=== PATIENT | female | born 1935 | race Caucasian/White ===

== ENCOUNTER 2017-05-31 11:41 | Inpatient (IN) | payer MEDICARE, MEDICAID ==
[~2017-05-31] VITALS: Ht 154.9 cm; Wt 63.9 kg
[~2017-05-31 11:41] MED LIST: ACET-2119 PO; ATOR20TA66 PO; CALC-1092 PO; CHLO-188 PO; CHOL2000 PO; CLOP75TA35 PO; DONE10TA6 PO; FENT-90 TP; GLIM4TAB79 PO; LINA5TAB4 PO; PANT-47 PO
[2017-05-31 12:28] LABS: BASOPHILS % (AUTO) 0.2 % (0-1); EOSINOPHILS # (AUTO) 0.2 X10'3 (0-0.9); EOSINOPHILS % (AUTO) 1.8 % (0-6); HEMATOCRIT 42.5 % (35.0-45.0); HEMOGLOBIN 14.4 g/dl (12.0-16.0); LYMPHOCYTES # (AUTO) 4.5 X10'3 (1.1-4.8); LYMPHOCYTES % (AUTO) 37.5 % (21-51); MEAN CORPUSCULAR HEMOGLOBIN 29.6 PG (27.0-31.0); MEAN CORPUSCULAR HGB CONC 33.8 % (33.0-36.5); MEAN CORPUSCULAR VOLUME 87.5 FL (78-98); MEAN PLATELET VOLUME 10.4 FL (7.4-10.4); MONOCYTES # (AUTO) 0.7 X10'3 (0-0.9); NEUTROPHILS # (AUTO) 6.6 X10'3 (1.8-7.7); NEUTROPHILS % (AUTO) 54.5 % (42-75); PLATELET COUNT 176 X10'3 (140-440); RED BLOOD COUNT 4.86 X10'6 (4.20-5.60); WHITE BLOOD COUNT 12.1 X10'3 (4.5-11.0)
[2017-05-31 12:38] LABS: INR 1.1 INR; PARTIAL THROMBOPLASTIN TIME 27 SECONDS (22-32); PROTHROMBIN TIME 10.9 SECONDS (9.0-12.0)
[2017-05-31 12:42] LABS: ALANINE AMINOTRANSFERASE 12 U/L (12-78); ALBUMIN 3.9 G/DL (3.4-5.0); ALBUMIN/GLOBULIN RATIO 1.4 (1.1-1.5); ALKALINE PHOSPHATASE 76 IU/L (46-116); ANION GAP 8 (8-16); ASPARTATE AMINO TRANSFERASE 10 U/L (10-37); BILIRUBIN,TOTAL 0.3 MG/DL (0.1-1.0); BLOOD UREA NITROGEN 16 MG/DL (7-18); CALCIUM 9.5 MG/DL (8.5-10.1); CHLORIDE 108 MMOL/L (99-107); GLUCOSE 114 MG/DL (70-104); POTASSIUM 4.1 MMOL/L (3.5-5.1); SODIUM 143 MMOL/L (135-145); TOTAL CARBON DIOXIDE 26.8 MMOL/L (24-32); TOTAL PROTEIN 6.7 G/DL (6.4-8.2); eGFR 53 ML/MIN
[2017-05-31] MEDS ORDERED: nitroGLYCERIN 1gm ointment UD TP ONE (12:50)
[2017-05-31] MEDS ORDERED: enoxaparin 100mg/ml syringe SUBCUT ONE (13:05)
[2017-05-31] MEDS ORDERED: CYCL5TAB PO (13:42)
[2017-05-31] MEDS ORDERED: OMEP20TA23 PO (13:44)
[2017-05-31] MEDS ORDERED: ASPI-1053 PO (13:44)
[2017-05-31] MEDS ORDERED: ISOS30TA6 PO (13:45)
[2017-05-31] MEDS: K and/or MAG REPLACEMENT MC SCH (14:15)
[2017-05-31] MEDS ORDERED: mag hydrox/Alum hydrox/simeth 30ml oral suspension PO PRN (14:15)
[2017-05-31] MEDS ORDERED: magnesium 2GM in 50ml NS 50 ML IV PRN (14:15)
[2017-05-31] MEDS ORDERED: magnesium hydroxide 30ml (MOM) UD suspension PO PRN (14:15)
[2017-05-31] MEDS ORDERED: nitroGLYCERIN 0.4mg SUBLingual tab SL PRN (14:15)
[2017-05-31] MEDS ORDERED: morphine 2 MG/ML inj. syringe IV PRN (14:15)
[2017-05-31] MEDS ORDERED: magnesium 4gm in 100ml NS 100 ML IV PRN (14:15)
[2017-05-31] MEDS ORDERED: magnesium Cl slow-release 64mg tablet PO PRN (14:15)
[2017-05-31] MEDS ORDERED: potassium Cl 40MEQ/NS 500ml 500 ML IV PRN ×2 (14:15)
[2017-05-31] MEDS ORDERED: potassium Cl 20 mEq SR tablet PO PRN ×2 (14:15)
[2017-05-31] MEDS ORDERED: acetaminophen 325mg tablet PO PRN ×3 (14:15→17:50)
[2017-05-31 15:54] LABS: HEMOGLOBIN A1C 6.8 % (4.5-6.2)
[2017-05-31] MEDS: normal saline 1000ml 1,000 ML IV SCH (16:25)
[2017-05-31 18:00] VITALS: BP 124/63
[2017-05-31 19:42] LABS: CHOLESTEROL 292 MG/DL (0-200); HDL CHOLESTEROL 49 MG/DL (35-60); LDL CHOLESTEROL 212 MG/DL (50-100); TRIGLYCERIDES 162 MG/DL (20-135)
[2017-05-31] MEDS: metoprolol tartrate 12.5mg (1/2 tablet) PO SCH (20:06)
[2017-05-31] MEDS: morphine 2 MG/ML inj. syringe IV PRN (20:07)
[2017-05-31] MEDS ORDERED: temazepam 15mg capsule PO PRN (21:00)
[2017-05-31 22:00] VITALS: BP 127/56
[2017-06-01] VITALS (18 sets, daily range): BP systolic 98–182; BP diastolic 49–86
[2017-06-01] MEDS: normal saline 1000ml 1,000 ML IV SCH ×4 (02:24→20:13)
[2017-06-01] MEDS: ondansetron/PF 4mg/2ml inj IV PRN ×3 (03:58→16:36)
[2017-06-01 06:29] LABS: HEMATOCRIT 39.8 % (35.0-45.0); HEMOGLOBIN 13.3 g/dl (12.0-16.0); MEAN CORPUSCULAR HEMOGLOBIN 29.2 PG (27.0-31.0); MEAN CORPUSCULAR HGB CONC 33.4 % (33.0-36.5); MEAN CORPUSCULAR VOLUME 87.4 FL (78-98); MEAN PLATELET VOLUME 11.2 FL (7.4-10.4); PLATELET COUNT 140 X10'3 (140-440); RED BLOOD COUNT 4.55 X10'6 (4.20-5.60); RED CELL DISTRIBUTION WIDTH 14.9 % (11.5-14.5); WHITE BLOOD COUNT 10.8 X10'3 (4.5-11.0)
[2017-06-01 06:55] LABS: ALBUMIN 3.3 G/DL (3.4-5.0); ANION GAP 10 (8-16); BLOOD UREA NITROGEN 17 MG/DL (7-18); BUN/CREATININE RATIO 21.3 (6.6-38.0); CALCIUM 8.7 MG/DL (8.5-10.1); CHLORIDE 111 MMOL/L (99-107); GLUCOSE 151 MG/DL (70-104); MAGNESIUM 1.7 MG/DL (1.5-2.4); POTASSIUM 3.9 MMOL/L (3.5-5.1); SODIUM 145 MMOL/L (135-145); TOTAL CARBON DIOXIDE 24.5 MMOL/L (24-32); eGFR 69 ML/MIN
[2017-06-01] MEDS: morphine 2 MG/ML inj. syringe IV PRN ×2 (07:56→16:37)
[2017-06-01] MEDS: pantoprazole 40mg Tablet.DR PO SCH (07:58)
[2017-06-01] MEDS: metoprolol tartrate 12.5mg (1/2 tablet) PO SCH ×2 (07:59→19:36)
[2017-06-01] MEDS: donepezil 5mg tablet PO SCH ×2 (07:59→17:30)
[2017-06-01] MEDS: isosorbide mononitrate 30mg tab.SR.24H PO SCH (08:00)
[2017-06-01] MEDS: K and/or MAG REPLACEMENT MC SCH (08:00)
[2017-06-01] MEDS ORDERED: aspirin 81mg tab.chew PO SCH (08:30)
[2017-06-01] MEDS: proCHLORperazine 10 MG/2 ml inj IV PRN (14:26)
[2017-06-01] MEDS ORDERED: iohexol 350 MG/ML 50ML vial IV ONE (14:34)
[2017-06-01] MEDS ORDERED: LIDOcaine 1% 30ml vial 30 ML ONE (14:34)
[2017-06-01] MEDS ORDERED: iohexol 350MG/ML 100ml bottle IV ONE (14:34)
[2017-06-01] MEDS ORDERED: heparin 1,000unit/ml 10ml vial 10 ML ONE (14:34)
[2017-06-01] MEDS ORDERED: nitroGLYCERIN-Tridil 50MG/D5W 250 ML IV ONE ×2 (14:34→15:36)
[2017-06-01] MEDS ORDERED: cyclobenzaprine 10mg tablet PO PRN (18:05)
[2017-06-01] MEDS ORDERED: OXAZEpam 15mg capsule PO PRN (18:05)
[2017-06-01] MEDS ORDERED: acetaminophen 325mg tablet PO PRN (18:30)
[2017-06-01] MEDS ORDERED: magnesium hydroxide 30ml (MOM) UD suspension PO PRN (18:30)
[2017-06-01] MEDS ORDERED: aspirin 325mg tablet PO ONE (18:30)
[2017-06-01] MEDS ORDERED: proCHLORperazine 10 MG/2 ml inj IV PRN (18:30)
[2017-06-01] MEDS: nitroGLYCERIN-Tridil 50MG/D5W 250 ML IV SCH (18:30)
[2017-06-01] MEDS ORDERED: glucagon, human recombinant 1mg kit SUBCUT PRN (18:35)
[2017-06-01] MEDS ORDERED: dextrose ORAL solution 15 GM/59 ML bottle PO PRN ×2 (18:35)
[2017-06-01] MEDS ORDERED: dextrose 50%-water 50ml dispensing syringe IV PRN ×2 (18:35)
[2017-06-01] MEDS: docusate sod 100mg capsule PO SCH (19:36)
[2017-06-01] MEDS: insulin glargine (Lantus) pen - multi-dose SQ SCH (20:44)
[2017-06-01] MEDS: hydrALAZINE 20mg/ml inj. IV PRN (23:53)
[2017-06-02] VITALS (27 sets, daily range): BP systolic 118–176; BP diastolic 49–84
[2017-06-02] MEDS: proCHLORperazine 10 MG/2 ml inj IV PRN (00:16)
[2017-06-02 03:30] LABS: BASOPHILS % (AUTO) 0.2 % (0-1); EOSINOPHILS # (AUTO) 0.2 X10'3 (0-0.9); EOSINOPHILS % (AUTO) 0.9 % (0-6); HEMATOCRIT 39.8 % (35.0-45.0); HEMOGLOBIN 13.6 g/dl (12.0-16.0); LYMPHOCYTES # (AUTO) 5.4 X10'3 (1.1-4.8); LYMPHOCYTES % (AUTO) 26.9 % (21-51); MEAN CORPUSCULAR HEMOGLOBIN 29.8 PG (27.0-31.0); MEAN CORPUSCULAR HGB CONC 34.2 % (33.0-36.5); MEAN CORPUSCULAR VOLUME 87.1 FL (78-98); MEAN PLATELET VOLUME 11.3 FL (7.4-10.4); MONOCYTES # (AUTO) 0.8 X10'3 (0-0.9); MONOCYTES % (AUTO) 3.9 % (2-12); NEUTROPHILS # (AUTO) 13.7 X10'3 (1.8-7.7); NEUTROPHILS % (AUTO) 68.1 % (42-75); PLATELET COUNT 180 X10'3 (140-440); RED BLOOD COUNT 4.57 X10'6 (4.20-5.60); RED CELL DISTRIBUTION WIDTH 14.8 % (11.5-14.5); WHITE BLOOD COUNT 20.1 X10'3 (4.5-11.0)
[2017-06-02 03:45] LABS: PLATELET ESTIMATE NORMAL
[2017-06-02 03:46] LABS: LARGE PLATELETS FEW
[2017-06-02 03:58] LABS: ALBUMIN 3.6 G/DL (3.4-5.0); ANION GAP 14 (8-16); BLOOD UREA NITROGEN 13 MG/DL (7-18); BUN/CREATININE RATIO 16.3 (6.6-38.0); CHLORIDE 107 MMOL/L (99-107); GLUCOSE 231 MG/DL (70-104); MAGNESIUM 1.7 MG/DL (1.5-2.4); POTASSIUM 3.5 MMOL/L (3.5-5.1); SODIUM 143 MMOL/L (135-145); TOTAL CARBON DIOXIDE 21.7 MMOL/L (24-32); eGFR 69 ML/MIN
[2017-06-02] MEDS: normal saline 1000ml 1,000 ML IV SCH ×3 (04:35→16:40)
[2017-06-02] MEDS: hydrALAZINE 20mg/ml inj. IV PRN (07:57)
[2017-06-02] MEDS: docusate sod 100mg capsule PO SCH ×2 (07:58→19:06)
[2017-06-02] MEDS: pantoprazole 40mg Tablet.DR PO SCH (07:58)
[2017-06-02] MEDS: metoprolol tartrate 12.5mg (1/2 tablet) PO SCH (07:59)
[2017-06-02] MEDS: aspirin 325mg tablet PO SCH (07:59)
[2017-06-02] MEDS ORDERED: heparin 1,000unit/ml 10ml vial 10 ML ONE (07:59)
[2017-06-02] MEDS: isosorbide mononitrate 30mg tab.SR.24H PO SCH (07:59)
[2017-06-02] MEDS ORDERED: nitroGLYCERIN-Tridil 50MG/D5W 250 ML IV ONE (07:59)
[2017-06-02] MEDS: donepezil 5mg tablet PO SCH ×2 (07:59→17:50)
[2017-06-02] MEDS ORDERED: nitroGLYCERIN 0.4mg/hour patch TD SCH (08:00)
[2017-06-02] MEDS: K and/or MAG REPLACEMENT MC SCH (08:00)
[2017-06-02] MEDS ORDERED: LIDOcaine 1% 30ml vial 30 ML ONE (08:00)
[2017-06-02] MEDS ORDERED: iohexol 350 MG/1 ML 200ml bottle ONE (08:00)
[2017-06-02] MEDS ORDERED: proCHLORperazine 10 MG/2 ml inj ONE (08:18)
[2017-06-02] MEDS ORDERED: verapamil 2.5 mg/ml inj IV ONE (08:46)
[2017-06-02] MEDS ORDERED: magnesium 1 GM/2 ML inj ONE (09:12)
[2017-06-02] MEDS ORDERED: potassium Cl 20mEq/100mL bag 100 ML IV ONE (09:12)
[2017-06-02] MEDS ORDERED: clopidogrel 300mg tablet ONE (09:54)
[2017-06-02 10:16] LABS: ISTAT HGB ART 13.3 g/dl (12.0-16.0); ISTAT Hct ART 39 %PCV (35-48); ISTAT Hct MIX 37 %PCV (35-48); ISTAT O2 SATURATION ARTERIAL 98 % (95-98); ISTAT O2 SATURATION MIX VENOUS 66 % (60-80); ISTAT SOURCE ART; ISTAT SOURCE MIX
[2017-06-02] MEDS: ondansetron/PF 4mg/2ml inj IV PRN ×2 (11:35→19:07)
[2017-06-02] MEDS: insulin Lispro (HumaLOG) vial - multi-dose SQ SCH ×2 (13:13→19:06)
[2017-06-02] MEDS ORDERED: sotalol 80mg tablet PO ONE (13:55)
[2017-06-02] MEDS ORDERED: morphine 2 MG/ML inj. syringe IV ONE (16:35)
[2017-06-02] MEDS: nitroGLYCERIN-Tridil 50MG/D5W 250 ML IV SCH (18:30)
[2017-06-02] MEDS: sotalol 80mg tablet PO SCH (20:22)
[2017-06-02] MEDS: insulin glargine (Lantus) pen - multi-dose SQ SCH (21:00)
[2017-06-02] MEDS ORDERED: atorvastatin 10mg tablet PO SCH (21:00)
[2017-06-03] VITALS (15 sets, daily range): BP systolic 104–154; BP diastolic 46–96
[2017-06-03] MEDS: normal saline 1000ml 1,000 ML IV SCH ×2 (02:13→12:13)
[2017-06-03 06:11] LABS: HEMATOCRIT 36.6 % (35.0-45.0); HEMOGLOBIN 12.4 g/dl (12.0-16.0); MEAN CORPUSCULAR HEMOGLOBIN 29.7 PG (27.0-31.0); MEAN CORPUSCULAR VOLUME 87.2 FL (78-98); PLATELET COUNT 160 X10'3 (140-440); RED CELL DISTRIBUTION WIDTH 15.2 % (11.5-14.5); WHITE BLOOD COUNT 16.6 X10'3 (4.5-11.0)
[2017-06-03 06:50] LABS: ANION GAP 9 (8-16); BLOOD UREA NITROGEN 16 MG/DL (7-18); CALCIUM 8.7 MG/DL (8.5-10.1); CHLORIDE 112 MMOL/L (99-107); GLUCOSE 127 MG/DL (70-104); MAGNESIUM 2.1 MG/DL (1.5-2.4); POTASSIUM 3.8 MMOL/L (3.5-5.1); SODIUM 146 MMOL/L (135-145); TOTAL CARBON DIOXIDE 24.8 MMOL/L (24-32); eGFR 69 ML/MIN
[2017-06-03] MEDS: K and/or MAG REPLACEMENT MC SCH (08:00)
[2017-06-03] MEDS ORDERED: clopidogrel 75mg tablet PO SCH (08:00)
[2017-06-03] MEDS: pantoprazole 40mg Tablet.DR PO SCH (08:25)
[2017-06-03] MEDS: isosorbide mononitrate 30mg tab.SR.24H PO SCH (08:25)
[2017-06-03] MEDS: donepezil 5mg tablet PO SCH (08:26)
[2017-06-03] MEDS: sotalol 80mg tablet PO SCH (08:26)
[2017-06-03] MEDS: docusate sod 100mg capsule PO SCH (08:27)
[2017-06-03] MEDS: insulin Lispro (HumaLOG) vial - multi-dose SQ SCH (08:52)
[2017-06-03] MEDS: aspirin 325mg tablet PO SCH (09:21)
[2017-06-03] MEDS ORDERED: NITR0.4T51 SL (11:53)
[2017-06-03] MEDS ORDERED: PANT40TA4 PO (11:53)
[2017-06-03] MEDS ORDERED: SOTA80TA69 PO (11:53)
[2017-06-03] MEDS ORDERED: ATOR10TA PO (11:53)
== END 2017-06-03 17:00 | disposition home health service (06) | DRG 246 ==
LOC: ER 11:42 → ED HOLD 14:13 → EDBEDREQ 16:09 → PCU 3S 16:46 → ICU 2S 06-01 15:55
PROVIDERS: ADMIT Family Medicine; ATTEND Family Medicine
PROC: 4A023N8 Measurement of Cardiac Sampling and Pressure, Bilateral, Percutaneous Approach (ICD-10-PCS; principal; 2017-06-01)
PROC: B2111ZZ Fluoroscopy of Multiple Coronary Arteries using Low Osmolar Contrast (ICD-10-PCS; 2017-06-01)
PROC: B2151ZZ Fluoroscopy of Left Heart using Low Osmolar Contrast (ICD-10-PCS; 2017-06-01)
PROC: 027135Z Dilation of Coronary Artery, Two Arteries with Two Drug-eluting Intraluminal Devices, Percutaneous Approach (ICD-10-PCS; 2017-06-02)
DX: T82.855A Stenosis of coronary artery stent, initial encounter (principal); N17.0 Acute kidney failure with tubular necrosis; I11.0 Hypertensive heart disease with heart failure; E87.1 Hypo-osmolality and hyponatremia; I50.9 Heart failure, unspecified; E11.9 Type 2 diabetes mellitus without complications; D72.829 Elevated white blood cell count, unspecified; I25.110 Atherosclerotic heart disease of native coronary artery with unstable angina pectoris; E78.5 Hyperlipidemia, unspecified; K21.9 Gastro-esophageal reflux disease without esophagitis; G31.84 Mild cognitive impairment of uncertain or unknown etiology; Y82.8 Other medical devices associated with adverse incidents; I25.2 Old myocardial infarction; Z78.0 Asymptomatic menopausal state; Z90.710 Acquired absence of both cervix and uterus; Z88.0 Allergy status to penicillin; Z88.2 Allergy status to sulfonamides; Z88.5 Allergy status to narcotic agent; Z91.013 Allergy to seafood; Z88.8 Allergy status to other drugs, medicaments and biological substances; Z91.018 Allergy to other foods; Z91.048 Other nonmedicinal substance allergy status; Z79.02 Long term (current) use of antithrombotics/antiplatelets; Z79.899 Other long term (current) drug therapy; Z79.84 Long term (current) use of oral hypoglycemic drugs; Z85.3 Personal history of malignant neoplasm of breast; Y92.89 Other specified places as the place of occurrence of the external cause
CPT/HCPCS: 93460; 96372; 99285; C9600; 36415; 71045; 80048; 80053; 80061; 82803; 82948; 83036; 83735; 84484; 85014; 85025; 85027; 85347; 85610; 85730; 87070; 93005; A4620; A6213; A6257; A6258; A6402; A6449; C1725; C1769; C1874; J0360; J0780; J1644; J1650; J1815; J2270; J2405; J3475; J3480; J3490; J7030; Q9967

== ENCOUNTER 2017-08-30 10:12 | Emergency (ER) | payer MEDICARE, MEDICAID ==
[~2017-08-30] VITALS: Ht 154.9 cm; Wt 58.0 kg
[~2017-08-30 10:12] MED LIST changes: +ASPI-1053 PO; +ATOR10TA PO; -ATOR20TA66 PO; -CHLO-188 PO; +CYCL5TAB PO; -FENT-90 TP; +ISOS30TA6 PO; +NITR0.4T51 SL; -PANT-47 PO; +PANT40TA4 PO; +SOTA80TA69 PO
[2017-08-30 10:14] VITALS: BP 143/81
== END 2017-08-30 11:19 | disposition home or self-care (01) ==
LOC: ER 10:13
DX: H61.23 Impacted cerumen, bilateral (principal); I25.10 Atherosclerotic heart disease of native coronary artery without angina pectoris; I11.0 Hypertensive heart disease with heart failure; I50.9 Heart failure, unspecified; E11.9 Type 2 diabetes mellitus without complications; Z90.710 Acquired absence of both cervix and uterus; Z88.5 Allergy status to narcotic agent; Z88.2 Allergy status to sulfonamides; Z88.0 Allergy status to penicillin; Z79.899 Other long term (current) drug therapy
CPT/HCPCS: 69210; 93005; 99284

== ENCOUNTER 2018-03-12 10:03 | Outpatient (CLI) | payer MEDICARE, MEDICAID ==
[~2018-03-12 10:03] MED LIST changes: +CYCL-1 PO; +DOCU-28 PO; -DONE10TA6 PO; +DONE10TA7 PO; +EZET10TA14 PO; +HYDR-4383 PO; -SOTA80TA69 PO; +SOTA80TA73 PO
== END 2018-03-12 23:59 | disposition home or self-care (01) ==
LOC: RAD 10:03
PROVIDERS: ATTEND Internal Medicine Cardiovascular Disease
DX: I25.10 Atherosclerotic heart disease of native coronary artery without angina pectoris (principal); Z95.5 Presence of coronary angioplasty implant and graft

== ENCOUNTER 2018-04-21 08:20 | Inpatient (IN) | payer MEDICARE, MEDICAID ==
[~2018-04-21] VITALS: Ht 157.5 cm; Wt 59.0 kg
[2018-04-21] MEDS ORDERED: aspirin 81mg tab.chew PO ONE (08:50)
[2018-04-21 09:19] LABS: BASOPHILS % (AUTO) 0.3 % (0-1); EOSINOPHILS # (AUTO) 0.2 X10'3 (0-0.9); EOSINOPHILS % (AUTO) 1.4 % (0-6); HEMATOCRIT 46.1 % (35.0-45.0); HEMOGLOBIN 15.1 g/dl (12.0-16.0); LYMPHOCYTES # (AUTO) 6.6 X10'3 (1.1-4.8); MEAN CORPUSCULAR HEMOGLOBIN 29.2 PG (27.0-31.0); MEAN CORPUSCULAR HGB CONC 32.8 % (33.0-36.5); MEAN PLATELET VOLUME 10.5 FL (7.4-10.4); MONOCYTES # (AUTO) 0.7 X10'3 (0-0.9); MONOCYTES % (AUTO) 5.1 % (2-12); NEUTROPHILS # (AUTO) 6.8 X10'3 (1.8-7.7); NEUTROPHILS % (AUTO) 47.2 % (42-75); PLATELET COUNT 157 X10'3 (140-440); RED BLOOD COUNT 5.18 X10'6 (4.20-5.60); RED CELL DISTRIBUTION WIDTH 13.7 % (11.5-14.5); WHITE BLOOD COUNT 14.4 X10'3 (4.5-11.0)
[2018-04-21 09:24] LABS: PROTHROMBIN TIME 10.8 SECONDS (9.0-12.0)
[2018-04-21 09:25] LABS: INR 1.1 INR; PARTIAL THROMBOPLASTIN TIME 28 SECONDS (22-32)
[2018-04-21 09:31] LABS: ALANINE AMINOTRANSFERASE 24 U/L (12-78); ALBUMIN 3.7 G/DL (3.4-5.0); ALBUMIN/GLOBULIN RATIO 1.3 (1.1-1.5); ALKALINE PHOSPHATASE 100 IU/L (46-116); ANION GAP 12 (8-16); ASPARTATE AMINO TRANSFERASE 18 U/L (10-37); BILIRUBIN,TOTAL 0.4 MG/DL (0.1-1.0); BLOOD UREA NITROGEN 16 MG/DL (7-18); BUN/CREATININE RATIO 19.5 (6.6-38.0); CALCIUM 9.7 MG/DL (8.5-10.1); CHLORIDE 104 MMOL/L (99-107); CREATININE 0.82 MG/DL (0.40-0.90); GLUCOSE 234 MG/DL (70-104); POTASSIUM 4.1 MMOL/L (3.5-5.1); SODIUM 140 MMOL/L (135-145); TOTAL CARBON DIOXIDE 24.5 MMOL/L (24-32); TOTAL PROTEIN 6.6 G/DL (6.4-8.2); eGFR 66 ML/MIN
[2018-04-21] MEDS ORDERED: ondansetron/PF 4mg/2ml inj IV PRN (09:55)
[2018-04-21] MEDS ORDERED: dextrose ORAL solution 15 GM/59 ML bottle PO PRN ×2 (09:55)
[2018-04-21] MEDS ORDERED: acetaminophen 325mg tablet PO PRN (09:55)
[2018-04-21] MEDS ORDERED: dextrose 50%-water 50ml dispensing syringe IV PRN ×2 (09:55)
[2018-04-21] MEDS: K and/or MAG REPLACEMENT MC SCH (09:55)
[2018-04-21] MEDS ORDERED: glucagon, human recombinant 1mg kit SUBCUT PRN (09:55)
[2018-04-21] MEDS ORDERED: magnesium 4gm in 100ml NS 100 ML IV PRN (09:55)
[2018-04-21] MEDS ORDERED: docusate sod 100mg capsule PO PRN ×2 (09:55→11:40)
[2018-04-21] MEDS ORDERED: potassium Cl 20 mEq SR tablet PO PRN (09:55)
[2018-04-21] MEDS ORDERED: magnesium Cl slow-release 64mg tablet PO PRN (09:55)
[2018-04-21] MEDS ORDERED: mag hydrox/Alum hydrox/simeth 30ml oral suspension PO PRN (09:55)
[2018-04-21] MEDS ORDERED: potassium Cl 40MEQ/NS 500ml 500 ML IV PRN ×2 (09:55)
[2018-04-21] MEDS ORDERED: MESSAGE TO PHARMACY PO ONE (09:55)
[2018-04-21] MEDS ORDERED: ipratropium/albuterol 3ml nebule NEB PRN (10:25)
[2018-04-21 10:26] LABS: HEMOGLOBIN A1C 7.5 % (4.5-6.2)
[2018-04-21] MEDS ORDERED: LINA5TAB4 PO (10:31)
[2018-04-21] MEDS ORDERED: CLOP75TA15 PO (10:39)
[2018-04-21] MEDS ORDERED: ATOR10TA87 PO (10:39)
[2018-04-21] MEDS ORDERED: DOCU-28 PO (10:39)
[2018-04-21] MEDS ORDERED: PANT-47 PO (10:40)
[2018-04-21] MEDS ORDERED: NITR0.4T51 SL (10:40)
[2018-04-21] MEDS ORDERED: SOTA80TA73 PO (10:40)
[2018-04-21] MEDS ORDERED: CALCIUM CARB PO PRN (11:40)
[2018-04-21] MEDS ORDERED: MAGNESIUM HYDROX PO PRN (11:40)
[2018-04-21] MEDS ORDERED: nitroGLYCERIN 0.4mg SUBLingual tab SL PRN (11:40)
[2018-04-21] MEDS: DOXYCYCLINE 100MG CAPSULE PO SCH ×2 (15:52→19:17)
[2018-04-21] MEDS: donepezil 5mg tablet PO SCH (17:41)
[2018-04-21 18:00] VITALS: BP 140/68
[2018-04-21] MEDS: sotalol 80mg tablet PO SCH (19:17)
[2018-04-21] MEDS: atorvastatin 10mg tablet PO SCH (20:37)
[2018-04-21] MEDS: insulin glargine (Lantus) pen - multi-dose SQ SCH (20:43)
[2018-04-21 22:00] VITALS: BP 137/65
[2018-04-22 02:00] VITALS: BP 154/71
[2018-04-22] MEDS ORDERED: HYDROcodone/acetaminophen 5mg/325mg tablet PO PRN (02:50)
[2018-04-22 05:37] LABS: BASOPHILS % (AUTO) 0.3 % (0-1); EOSINOPHILS # (AUTO) 0.3 X10'3 (0-0.9); EOSINOPHILS % (AUTO) 2.2 % (0-6); HEMATOCRIT 41.9 % (35.0-45.0); HEMOGLOBIN 13.8 g/dl (12.0-16.0); LYMPHOCYTES # (AUTO) 4.7 X10'3 (1.1-4.8); LYMPHOCYTES % (AUTO) 35.3 % (21-51); MEAN CORPUSCULAR HEMOGLOBIN 29.2 PG (27.0-31.0); MEAN CORPUSCULAR HGB CONC 32.9 % (33.0-36.5); MEAN CORPUSCULAR VOLUME 88.8 FL (78-98); MEAN PLATELET VOLUME 11.1 FL (7.4-10.4); MONOCYTES # (AUTO) 0.8 X10'3 (0-0.9); NEUTROPHILS # (AUTO) 7.4 X10'3 (1.8-7.7); NEUTROPHILS % (AUTO) 56.2 % (42-75); PLATELET COUNT 145 X10'3 (140-440); RED BLOOD COUNT 4.72 X10'6 (4.20-5.60); RED CELL DISTRIBUTION WIDTH 13.7 % (11.5-14.5); WHITE BLOOD COUNT 13.2 X10'3 (4.5-11.0)
[2018-04-22 05:49] LABS: ALANINE AMINOTRANSFERASE 20 U/L (12-78); ALBUMIN 3.3 G/DL (3.4-5.0); ALBUMIN/GLOBULIN RATIO 1.3 (1.1-1.5); ALKALINE PHOSPHATASE 71 IU/L (46-116); ANION GAP 8 (8-16); ASPARTATE AMINO TRANSFERASE 18 U/L (10-37); BILIRUBIN,TOTAL 0.4 MG/DL (0.1-1.0); BLOOD UREA NITROGEN 22 MG/DL (7-18); BUN/CREATININE RATIO 21.2 (6.6-38.0); CALCIUM 9.8 MG/DL (8.5-10.1); CHLORIDE 106 MMOL/L (99-107); CHOL/HDL RATIO 3.3 (0.00-4.99); CHOLESTEROL 178 MG/DL (0-200); CREATININE 1.04 MG/DL (0.40-0.90); GLUCOSE 148 MG/DL (70-104); HDL CHOLESTEROL 54 MG/DL (35-60); LDL CHOLESTEROL 97 MG/DL (50-100); MAGNESIUM 1.5 MG/DL (1.5-2.4); POTASSIUM 3.9 MMOL/L (3.5-5.1); SODIUM 141 MMOL/L (135-145); TOTAL CARBON DIOXIDE 27.4 MMOL/L (24-32); TOTAL PROTEIN 5.9 G/DL (6.4-8.2); TRIGLYCERIDES 144 MG/DL (20-135); eGFR 50 ML/MIN
[2018-04-22] MEDS ORDERED: ondansetron/PF 4mg/2ml inj IV PRN (06:15)
[2018-04-22 07:08] VITALS: BP 144/56
[2018-04-22] MEDS: donepezil 5mg tablet PO SCH ×2 (07:30→17:02)
[2018-04-22] MEDS: K and/or MAG REPLACEMENT MC SCH (07:58)
[2018-04-22] MEDS: ezetimibe 10mg tablet PO SCH (08:00)
[2018-04-22] MEDS: vitamin D (cholecalciferol) 1,000 unit tablet PO SCH (08:00)
[2018-04-22] MEDS: DOXYCYCLINE 100MG CAPSULE PO SCH (08:00)
[2018-04-22] MEDS ORDERED: enoxaparin 40mg/0.4ml syringe SQ SCH (08:00)
[2018-04-22] MEDS ORDERED: metoclopramide 5 mg/ml inj IV ONE (08:10)
[2018-04-22] MEDS: aspirin 81mg tab.chew PO SCH (08:30)
[2018-04-22] MEDS: clopidogrel 75mg tablet PO SCH (09:04)
[2018-04-22] MEDS: sotalol 80mg tablet PO SCH ×2 (09:04→20:29)
[2018-04-22] MEDS: pantoprazole 40mg Tablet.DR PO SCH (09:06)
[2018-04-22 09:28] LABS: CLARITY,URINE CLEAR (Clear); COLOR,URINE STRAW (Yellow); GLUCOSE, URINE 100 mg/dl (Neg); KETONES,URINE TRACE mg/dl (Neg); LEUKOCYTE ESTERASE ,URINE TRACE (Neg); NITRITES, URINE NEGATIVE (Neg); OCCULT BLOOD,URINE NEGATIVE (Neg); PROTEIN,URINE NEGATIVE (Neg); UROBILINOGEN,URINE 0.2 E.U/dL (0.2-1.0)
[2018-04-22 09:36] LABS: UA COLLECTION TYPE NON-SPECIFIED
[2018-04-22 09:38] LABS: RBC,URINE NONE SEEN /HPF (0-2)
[2018-04-22 09:39] LABS: BACTERIA,URINE FEW /HPF (Neg); SQUAMOUS EPITHELIAL CELL,UR FEW /LPF (FEW)
[2018-04-22] MEDS: insulin Lispro (HumaLOG) vial - multi-dose SQ SCH ×3 (09:57→19:09)
[2018-04-22 11:41] VITALS: BP 160/70
[2018-04-22] MEDS ORDERED: proCHLORperazine 10 MG/2 ml inj IV ONE (12:00)
[2018-04-22] MEDS: levoFLOXACIN-Levaquin 500mg/D5 100 ML IV SCH (12:11)
[2018-04-22] MEDS ORDERED: proCHLORperazine 10 MG/2 ml inj IV PRN (14:15)
[2018-04-22 16:03] VITALS: BP 131/53
[2018-04-22 18:00] VITALS: BP 146/72
[2018-04-22] MEDS: atorvastatin 10mg tablet PO SCH (20:29)
[2018-04-22] MEDS: insulin glargine (Lantus) pen - multi-dose SQ SCH (20:37)
[2018-04-22 22:00] VITALS: BP 135/54
[2018-04-23 02:00] VITALS: BP 140/59
[2018-04-23 06:14] LABS: BASOPHILS % (AUTO) 0.2 % (0-1); EOSINOPHILS # (AUTO) 0.2 X10'3 (0-0.9); EOSINOPHILS % (AUTO) 0.9 % (0-6); HEMATOCRIT 43.9 % (35.0-45.0); HEMOGLOBIN 14.6 g/dl (12.0-16.0); LYMPHOCYTES # (AUTO) 7.8 X10'3 (1.1-4.8); LYMPHOCYTES % (AUTO) 38.5 % (21-51); MEAN CORPUSCULAR HEMOGLOBIN 29.4 PG (27.0-31.0); MEAN CORPUSCULAR HGB CONC 33.1 % (33.0-36.5); MEAN CORPUSCULAR VOLUME 88.8 FL (78-98); MEAN PLATELET VOLUME 11.2 FL (7.4-10.4); MONOCYTES # (AUTO) 0.9 X10'3 (0-0.9); MONOCYTES % (AUTO) 4.4 % (2-12); NEUTROPHILS # (AUTO) 11.3 X10'3 (1.8-7.7); PLATELET COUNT 175 X10'3 (140-440); RED BLOOD COUNT 4.94 X10'6 (4.20-5.60); RED CELL DISTRIBUTION WIDTH 13.3 % (11.5-14.5); WHITE BLOOD COUNT 20.1 X10'3 (4.5-11.0)
[2018-04-23 06:16] LABS: ALANINE AMINOTRANSFERASE 19 U/L (12-78); ALBUMIN 3.5 G/DL (3.4-5.0); ALBUMIN/GLOBULIN RATIO 1.3 (1.1-1.5); ALKALINE PHOSPHATASE 73 IU/L (46-116); ANION GAP 13 (8-16); ASPARTATE AMINO TRANSFERASE 15 U/L (10-37); BILIRUBIN,TOTAL 0.6 MG/DL (0.1-1.0); BLOOD UREA NITROGEN 17 MG/DL (7-18); BUN/CREATININE RATIO 22.7 (6.6-38.0); CALCIUM 9.8 MG/DL (8.5-10.1); CHLORIDE 102 MMOL/L (99-107); CREATININE 0.75 MG/DL (0.40-0.90); GLUCOSE 143 MG/DL (70-104); MAGNESIUM 1.5 MG/DL (1.5-2.4); POTASSIUM 3.3 MMOL/L (3.5-5.1); SODIUM 139 MMOL/L (135-145); TOTAL CARBON DIOXIDE 23.7 MMOL/L (24-32); TOTAL PROTEIN 6.2 G/DL (6.4-8.2); eGFR 74 ML/MIN
[2018-04-23 06:58] VITALS: BP 157/61
[2018-04-23] MEDS: potassium Cl 20 mEq SR tablet PO PRN ×3 (07:49→16:45)
[2018-04-23] MEDS: sotalol 80mg tablet PO SCH ×2 (07:50→19:35)
[2018-04-23] MEDS: aspirin 81mg tab.chew PO SCH (07:50)
[2018-04-23] MEDS: donepezil 5mg tablet PO SCH ×2 (07:50→16:44)
[2018-04-23] MEDS: vitamin D (cholecalciferol) 1,000 unit tablet PO SCH (07:50)
[2018-04-23] MEDS: ezetimibe 10mg tablet PO SCH (07:50)
[2018-04-23] MEDS: clopidogrel 75mg tablet PO SCH (07:50)
[2018-04-23] MEDS: levoFLOXACIN-Levaquin 500mg/D5 100 ML IV SCH (07:51)
[2018-04-23] MEDS: pantoprazole 40mg Tablet.DR PO SCH (07:55)
[2018-04-23] MEDS: K and/or MAG REPLACEMENT MC SCH (07:59)
[2018-04-23 11:00] VITALS: BP 149/57
[2018-04-23] MEDS: insulin Lispro (HumaLOG) vial - multi-dose SQ SCH ×2 (13:26→19:34)
[2018-04-23 15:00] VITALS: BP 139/57
[2018-04-23 18:00] VITALS: BP 143/71
[2018-04-23] MEDS: lactobacillus rhamnosus 10,000 MMU CELLS/CAPSULE PO SCH (19:35)
[2018-04-23] MEDS: atorvastatin 10mg tablet PO SCH (21:16)
[2018-04-23] MEDS: insulin glargine (Lantus) pen - multi-dose SQ SCH (21:19)
[2018-04-23 23:06] VITALS: BP 128/55
[2018-04-24 02:00] VITALS: BP 124/65
[2018-04-24 06:48] LABS: BASOPHILS % (AUTO) 0.3 % (0-1); EOSINOPHILS # (AUTO) 0.2 X10'3 (0-0.9); EOSINOPHILS % (AUTO) 1.2 % (0-6); HEMATOCRIT 44.7 % (35.0-45.0); HEMOGLOBIN 14.7 g/dl (12.0-16.0); LYMPHOCYTES # (AUTO) 6.7 X10'3 (1.1-4.8); LYMPHOCYTES % (AUTO) 48.1 % (21-51); MEAN CORPUSCULAR HEMOGLOBIN 29.2 PG (27.0-31.0); MEAN CORPUSCULAR HGB CONC 32.9 % (33.0-36.5); MEAN CORPUSCULAR VOLUME 88.8 FL (78-98); MEAN PLATELET VOLUME 10.8 FL (7.4-10.4); MONOCYTES # (AUTO) 0.9 X10'3 (0-0.9); MONOCYTES % (AUTO) 6.6 % (2-12); NEUTROPHILS # (AUTO) 6.1 X10'3 (1.8-7.7); NEUTROPHILS % (AUTO) 43.8 % (42-75); PLATELET COUNT 151 X10'3 (140-440); RED BLOOD COUNT 5.04 X10'6 (4.20-5.60); RED CELL DISTRIBUTION WIDTH 13.8 % (11.5-14.5); WHITE BLOOD COUNT 13.9 X10'3 (4.5-11.0)
[2018-04-24 07:00] VITALS: BP 110/57
[2018-04-24 07:16] LABS: ALANINE AMINOTRANSFERASE 21 U/L (12-78); ALBUMIN 3.4 G/DL (3.4-5.0); ALBUMIN/GLOBULIN RATIO 1.2 (1.1-1.5); ALKALINE PHOSPHATASE 72 IU/L (46-116); ANION GAP 12 (8-16); ASPARTATE AMINO TRANSFERASE 19 U/L (10-37); BILIRUBIN,TOTAL 0.7 MG/DL (0.1-1.0); BLOOD UREA NITROGEN 22 MG/DL (7-18); BUN/CREATININE RATIO 23.9 (6.6-38.0); CALCIUM 9.4 MG/DL (8.5-10.1); CHLORIDE 104 MMOL/L (99-107); CREATININE 0.92 MG/DL (0.40-0.90); GLUCOSE 89 MG/DL (70-104); MAGNESIUM 1.5 MG/DL (1.5-2.4); POTASSIUM 3.9 MMOL/L (3.5-5.1); SODIUM 140 MMOL/L (135-145); TOTAL CARBON DIOXIDE 24.2 MMOL/L (24-32); TOTAL PROTEIN 6.3 G/DL (6.4-8.2); eGFR 58 ML/MIN
[2018-04-24] MEDS: sotalol 80mg tablet PO SCH (07:55)
[2018-04-24] MEDS: ezetimibe 10mg tablet PO SCH (07:55)
[2018-04-24] MEDS: clopidogrel 75mg tablet PO SCH (07:55)
[2018-04-24] MEDS: vitamin D (cholecalciferol) 1,000 unit tablet PO SCH (07:57)
[2018-04-24] MEDS: donepezil 5mg tablet PO SCH (07:57)
[2018-04-24] MEDS: lactobacillus rhamnosus 10,000 MMU CELLS/CAPSULE PO SCH (07:57)
[2018-04-24] MEDS: levoFLOXACIN-Levaquin 500mg/D5 100 ML IV SCH (07:58)
[2018-04-24] MEDS: pantoprazole 40mg Tablet.DR PO SCH (07:58)
[2018-04-24] MEDS: K and/or MAG REPLACEMENT MC SCH (08:00)
[2018-04-24] MEDS: aspirin 81mg tab.chew PO SCH (08:17)
[2018-04-24] MEDS: insulin Lispro (HumaLOG) vial - multi-dose SQ SCH (08:17)
[2018-04-24 09:14] LABS: EOSINOPHILS % (MANUAL) 0.5 % (0-6); MONOCYTES % (MANUAL) 4.5 % (2-12); PLATELET ESTIMATE NORMAL; SMUDGE CELLS 2+; TOTAL CELLS COUNTED 200
[2018-04-24 11:00] VITALS: BP 110/47
[2018-04-24] MEDS ORDERED: LEVO500T89 PO (12:41)
[2018-04-24] MEDS ORDERED: SOTA80TA73 PO (12:41)
== END 2018-04-24 13:35 | disposition home or self-care (01) | DRG 204 ==
LOC: ER 08:20 → OBSVTOIN 09:53 → ED HOLD 09:53 → PCU 3S 13:10
PROVIDERS: ADMIT Family Medicine; ATTEND Family Medicine
DX: R07.81 Pleurodynia (principal); K52.1 Toxic gastroenteritis and colitis; E11.9 Type 2 diabetes mellitus without complications; F02.80 Dementia in other diseases classified elsewhere, unspecified severity, without behavioral disturbance, psychotic disturbance, mood disturbance, and anxiety; G30.9 Alzheimer's disease, unspecified; G89.29 Other chronic pain; I11.0 Hypertensive heart disease with heart failure; I25.10 Atherosclerotic heart disease of native coronary artery without angina pectoris; I50.9 Heart failure, unspecified; J44.9 Chronic obstructive pulmonary disease, unspecified; M54.5 Low back pain; M79.602 Pain in left arm; Z60.2 Problems related to living alone; T50.905A Adverse effect of unspecified drugs, medicaments and biological substances, initial encounter; K21.9 Gastro-esophageal reflux disease without esophagitis; I25.2 Old myocardial infarction; Z95.5 Presence of coronary angioplasty implant and graft; Z90.710 Acquired absence of both cervix and uterus; Z91.040 Latex allergy status; Z88.0 Allergy status to penicillin; Z91.013 Allergy to seafood; Z88.2 Allergy status to sulfonamides; Z88.8 Allergy status to other drugs, medicaments and biological substances; Z91.048 Other nonmedicinal substance allergy status; Z79.82 Long term (current) use of aspirin; Z79.84 Long term (current) use of oral hypoglycemic drugs; Z79.899 Other long term (current) drug therapy; Z87.891 Personal history of nicotine dependence; Z85.3 Personal history of malignant neoplasm of breast; Y92.89 Other specified places as the place of occurrence of the external cause
CPT/HCPCS: 36415; 71045; 74018; 80053; 80061; 81001; 82948; 83036; 83605; 83735; 84132; 84145; 84484; 85025; 85610; 85730; 87070; 87088; 93005; 93306; 94760; G0378; J0780; J1815; J1956; J2405; J2765

== ENCOUNTER 2018-06-05 12:28 | Outpatient (CLI) | payer MEDICARE, MEDICAID ==
[~2018-06-05 12:28] MED LIST changes: -ATOR10TA PO; +ATOR10TA87 PO; +CLOP75TA15 PO; -CLOP75TA35 PO; -CYCL-1 PO; -HYDR-4383 PO; -ISOS30TA6 PO; +PANT-47 PO; -PANT40TA4 PO
== END 2018-06-05 23:59 | disposition home or self-care (01) ==
LOC: CARD DIAG 12:28
PROVIDERS: ATTEND Internal Medicine Cardiovascular Disease
DX: I34.0 Nonrheumatic mitral (valve) insufficiency (principal); I11.0 Hypertensive heart disease with heart failure; I50.9 Heart failure, unspecified; E11.9 Type 2 diabetes mellitus without complications; I25.2 Old myocardial infarction; Z90.710 Acquired absence of both cervix and uterus; Z79.82 Long term (current) use of aspirin
CPT/HCPCS: 93306

== ENCOUNTER 2018-06-22 11:28 | Emergency (ER) | payer MEDICARE, MEDICAID ==
[~2018-06-22] VITALS: Ht 157.5 cm; Wt 63.2 kg
[2018-06-22] MEDS ORDERED: aspirin 325mg tablet PO ONE (12:00)
[2018-06-22 12:03] LABS: BASOPHILS # (AUTO) 0.1 X10'3 (0-0.2); BASOPHILS % (AUTO) 0.7 % (0-1); EOSINOPHILS # (AUTO) 0.1 X10'3 (0-0.9); EOSINOPHILS % (AUTO) 0.6 % (0-6); HEMATOCRIT 48.9 % (35.0-45.0); LYMPHOCYTES # (AUTO) 6.6 X10'3 (1.1-4.8); LYMPHOCYTES % (AUTO) 49.6 % (21-51); MEAN CORPUSCULAR HEMOGLOBIN 29.5 PG (27.0-31.0); MEAN CORPUSCULAR HGB CONC 32.8 g/dL (33.0-36.5); MEAN CORPUSCULAR VOLUME 89.9 FL (78-98); MEAN PLATELET VOLUME 10.1 FL (7.4-10.4); MONOCYTES # (AUTO) 0.7 X10'3 (0-0.9); MONOCYTES % (AUTO) 5.4 % (2-12); NEUTROPHILS # (AUTO) 5.8 X10'3 (1.8-7.7); NEUTROPHILS % (AUTO) 43.7 % (42-75); PLATELET COUNT 203 X10'3 (140-440); RED BLOOD COUNT 5.43 X10'6 (4.20-5.60); RED CELL DISTRIBUTION WIDTH 13.3 % (11.5-14.5); WHITE BLOOD COUNT 13.3 X10'3 (4.5-11.0)
[2018-06-22 12:16] LABS: INR 1.1 INR; PARTIAL THROMBOPLASTIN TIME 27 SECONDS (22-32); PROTHROMBIN TIME 11.2 SECONDS (9.0-12.0)
[2018-06-22 12:19] LABS: ALANINE AMINOTRANSFERASE 20 U/L (12-78); ALBUMIN 4.1 G/DL (3.4-5.0); ALBUMIN/GLOBULIN RATIO 1.3 (1.1-1.5); ALKALINE PHOSPHATASE 96 IU/L (46-116); ANION GAP 10 (8-16); ASPARTATE AMINO TRANSFERASE 16 U/L (10-37); BILIRUBIN,TOTAL 0.4 MG/DL (0.1-1.0); BLOOD UREA NITROGEN 18 MG/DL (7-18); BUN/CREATININE RATIO 18.6 (6.6-38.0); CALCIUM 9.8 MG/DL (8.5-10.1); CHLORIDE 105 MMOL/L (99-107); CREATININE 0.97 MG/DL (0.40-0.90); GLUCOSE 191 MG/DL (70-104); POTASSIUM 3.7 MMOL/L (3.5-5.1); SODIUM 142 MMOL/L (135-145); TOTAL CARBON DIOXIDE 27.3 MMOL/L (24-32); TOTAL PROTEIN 7.2 G/DL (6.4-8.2); eGFR 55 ML/MIN
[2018-06-22 12:32] LABS: PLATELET ESTIMATE NORMAL; TOTAL CELLS COUNTED 100
[2018-06-22 15:14] VITALS: BP 178/79
== END 2018-06-22 15:43 | disposition home or self-care (01) ==
LOC: ER 11:28
DX: R07.89 Other chest pain (principal); R19.7 Diarrhea, unspecified; I25.10 Atherosclerotic heart disease of native coronary artery without angina pectoris; I11.0 Hypertensive heart disease with heart failure; I50.9 Heart failure, unspecified; I25.2 Old myocardial infarction; E11.9 Type 2 diabetes mellitus without complications; Z98.61 Coronary angioplasty status; Z90.710 Acquired absence of both cervix and uterus; Z98.890 Other specified postprocedural states; Z88.0 Allergy status to penicillin; Z88.2 Allergy status to sulfonamides; Z88.5 Allergy status to narcotic agent; Z91.018 Allergy to other foods; Z91.040 Latex allergy status; Z91.013 Allergy to seafood; Z79.82 Long term (current) use of aspirin; Z79.899 Other long term (current) drug therapy; Z60.2 Problems related to living alone
CPT/HCPCS: 36415; 71045; 80053; 84484; 85025; 85610; 85730; 93005; 99284

== ENCOUNTER 2021-01-18 11:01 | Outpatient (CLI) | payer MEDICARE, MEDICAID ==
[~2021-01-18 11:01] MED LIST changes: -CALC-1092 PO; -CHOL2000 PO; -CYCL5TAB PO; +DONE10TA44 PO; -DONE10TA7 PO; -EZET10TA14 PO; +GABA-530 PO; -GLIM4TAB79 PO; +INSU100I25 SQ; +OLAN5TAB29 PO; +SOTA80TA PO; -SOTA80TA73 PO
== END 2021-01-18 23:59 | disposition home or self-care (01) ==
LOC: CARD DIAG 11:01
PROVIDERS: ATTEND Internal Medicine Cardiovascular Disease
DX: I34.0 Nonrheumatic mitral (valve) insufficiency (principal); R53.83 Other fatigue
CPT/HCPCS: 93306